=== PATIENT | male | born 1965 | race Caucasian/White ===

== ENCOUNTER 2023-05-22 14:00 | Emergency (ER) | payer OTHER, SELFPAY ==
[2023-05-22 14:03] VITALS: BP 114/64; PULSE 56; RESP 18; TEMP 36.4; O2SAT 97; BMI 23.0
--- NOTE | 2023-05-22 14:35 | ED.GENADULT ---
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 He was at work when a drill bit scattered out of control and lacerated the back of his left hand. He has no complaints of loss of function, numbness, tingling. Unsure of last tetanus. Related Data Home Medications Medication Instructions Recorded Confirmed No Known Home Medications 05/22/23 05/22/23 Allergies Allergy/AdvReac Type Severity Reaction Status Date / Time No Known Drug Allergies Allergy Verified 05/22/23 14:05 Exam Narrative: Exam Narrative: Vital signs reviewed In general, alert, well-appearing male. Extremities: Examination of the left hand shows a v-shaped laceration approximately 3 cm in total length. Careful exploration through full range of motion shows exposure the tendons but no tendon laceration. He has intact flexion extension throughout the hand. Distal CMS is normal. Bleeding is controlled. Const: Vital Signs, click to edit/add: Vital Signs - 24 hr 05/22/23 14:03 Temperature 97.5 F L Pulse Rate [Right Pulse Oximeter] 56 L Respiratory Rate 18 Blood Pressure [Ri ght Upper Arm] 114/64 Pulse Oximetry 97 Oxygen Delivery Me thod Room Air Course Course Hospital Course: Procedure note: Wound was anesthetized with lidocaine with epinephrine and explored without evidence of damage to deeper structures or foreign body. It was clean. Closed with 5 0 nylon, a total of 7 simple interrupted superficial sutures were placed. He tolerated this well. Dressing applied by the tech. There is no record of a recent tetanus booster so will update that today. Suture removal in 7-10 days, return for signs of infection. Vital Signs Vital signs: Initial Vital Signs Temperature 97.5 F L 05/22/23 14:03 Temperature Source Temporal Artery Scan 05/22/23 14:03 Pulse Rate 56 L 05/22/23 14:03 Respiratory Rate 18 05/22/23 14:03 Blood Pressure 114/64 05/22/23 14:03 Blood Pressure Mean 80 05/22/23 14:03 Blood Pressure Position Sitting 05/22/23 14:03 Pulse Oximetry 97 05/22/23 14:03 Oxygen Delivery Method Room Air 05/22/23 14:03 Vital Signs Temperature 97.5 F L 05/22/23 14:03 Pulse Rate 56 L 05/22/23 14:03 Respiratory Rate 18 05/22/23 14:03 Blood Pressure 114/64 05/22/23 14:03 Pulse Oximetry 97 05/22/23 14:03 Oxygen Delivery Method Room Air 05/22/23 14:03 Temperature 97.5 F L 05/22/23 14:03 Pulse Rate 56 L 05/22/23 14:03 Respiratory Rate 18 05/22/23 14:03 Blood Pressure 114/64 05/22/23 14:03 Pulse Oximetry 97 05/22/23 14:03 Oxygen Delivery Method Room Air 05/22/23 14:03 Discharge Plan Discharge Clinical Impression: Hand laceration Patient Disposition: Home, Self-Care Condition: Improved Instructions: Laceration (ED) Additional Instructions: Suture removal in about 10 days. Return for signs of infection. Keep wound clean and dry. Prescriptions: No Action No Known Home Medications Stand Alone Forms: MyHealth Info Instructions
[2023-05-22] MEDS: TETANUS/DIPHTH/PERTUSSIS 0.5 ML SYRINGE IM (14:45)
== END 2023-05-22 15:13 | disposition home or self-care (01) ==
PROVIDERS: Emergency Provider Emergency Medicine
DX: S61.412A Laceration without foreign body of left hand, initial encounter (principal); W29.8XXA Contact with other powered hand tools and household machinery, initial encounter
CPT/HCPCS: 12002; 90471; 90715; 99283